=== PATIENT | male | born 1995 | race Caucasian/White ===

== ENCOUNTER 2021-11-14 13:27 | Emergency (ER) | payer MEDICAID ==
[~2021-11-14] VITALS: Ht 185.4 cm; Wt 79.5 kg
[2021-11-14 14:02] LABS: BASOPHILS # (AUTO) 0.1 X10'3 (0-0.2); BASOPHILS % (AUTO) 0.6 % (0-1); EOSINOPHILS # (AUTO) 0.2 X10'3 (0-0.9); EOSINOPHILS % (AUTO) 2.5 % (0-6); HEMATOCRIT 49.5 % (42.0-52.0); HEMOGLOBIN 16.6 g/dl (14.0-17.9); LYMPHOCYTES # (AUTO) 2.9 X10'3 (1.1-4.8); MEAN CORPUSCULAR HEMOGLOBIN 32.1 PG (27.0-31.0); MEAN CORPUSCULAR HGB CONC 33.6 g/dL (33.0-36.5); MEAN CORPUSCULAR VOLUME 95.7 FL (78-98); MEAN PLATELET VOLUME 8.5 FL (7.4-10.4); MONOCYTES # (AUTO) 1.1 X10'3 (0-0.9); MONOCYTES % (AUTO) 11.7 % (2-12); NEUTROPHILS # (AUTO) 5.3 X10'3 (1.8-7.7); NEUTROPHILS % (AUTO) 55.2 % (42-75); PLATELET COUNT 221 X10'3 (140-440); RED BLOOD COUNT 5.17 X10'6 (4.70-6.10); RED CELL DISTRIBUTION WIDTH 13.4 % (11.5-14.5); WHITE BLOOD COUNT 9.5 X10'3 (4.5-11.0)
[2021-11-14 14:41] LABS: ALANINE AMINOTRANSFERASE 64 U/L (12-78); ALBUMIN 4.2 G/DL (3.4-5.0); ALBUMIN/GLOBULIN RATIO 1.3 (1.1-1.5); ALKALINE PHOSPHATASE 58 IU/L (46-116); ANION GAP 12 (8-16); ASPARTATE AMINO TRANSFERASE 31 U/L (10-37); BILIRUBIN,TOTAL 0.6 MG/DL (0.1-1.0); BLOOD UREA NITROGEN 6 MG/DL (7-18); BUN/CREATININE RATIO 6.3 (5.4-32.0); CALCIUM 9.1 MG/DL (8.5-10.1); CHLORIDE 104 MMOL/L (99-107); CREATININE 0.95 MG/DL (0.60-1.10); GLUCOSE 94 MG/DL (70-104); POTASSIUM 3.8 MMOL/L (3.5-5.1); SODIUM 141 MMOL/L (135-145); TOTAL CARBON DIOXIDE 25.5 MMOL/L (24-32); TOTAL PROTEIN 7.5 G/DL (6.4-8.2); eGFR > 90 ML/MIN
[2021-11-14 15:22] LABS: CLARITY,URINE SLIGHTLY CLOUDY (Clear); COLOR,URINE YELLOW (Yellow); GLUCOSE, URINE NEGATIVE (Neg); KETONES,URINE NEGATIVE (Neg); LEUKOCYTE ESTERASE ,URINE NEGATIVE (Neg); NITRITES, URINE NEGATIVE (Neg); OCCULT BLOOD,URINE MODERATE (Neg); PH,URINE 6.5 (4.8-8.0); PROTEIN,URINE NEGATIVE (Neg); UA COLLECTION TYPE CLN CATCH MIDSTREAM; UROBILINOGEN,URINE 0.2 E.U/dL (0.2-1.0)
[2021-11-14 15:30] LABS: WBC,URINE NONE SEEN /HPF (0-4)
[2021-11-14 15:31] LABS: BACTERIA,URINE NONE SEEN /HPF (Neg); MUCUS STRANDS MODERATE /LPF (Neg); RBC,URINE 20-50 /HPF (0-2); SQUAMOUS EPITHELIAL CELL,UR FEW /LPF (FEW)
[2021-11-14 16:29] VITALS: BP 129/87
== END 2021-11-14 16:31 | disposition home or self-care (01) ==
LOC: ER 13:27
DX: R10.31 Right lower quadrant pain (principal)
CPT/HCPCS: 36415; 74176; 80053; 81001; 85025; 99284

== ENCOUNTER 2021-11-19 05:40 | Inpatient (IN) | payer MEDICAID ==
[~2021-11-19] VITALS: Ht 188 cm; Wt 79.5 kg
--- NOTE | 2021-11-19 08:00 | NUR ---
CALLED LAB TO SEE IF THEY HAVE RECIVED BLD SPECIMEN PER EMI IN LAB ,JANE MUSIC ORCHESTRATOR CAME TO ER TO DRAW BLD BUT PT REFUSED TO GET IT DRAWN UNTILL HE GETS THE BED IN ER.
[2021-11-19 08:34] LABS: BASOPHILS # (AUTO) 0.1 X10'3 (0-0.2); BASOPHILS % (AUTO) 0.3 % (0-1); EOSINOPHILS # (AUTO) 0.1 X10'3 (0-0.9); EOSINOPHILS % (AUTO) 0.7 % (0-6); HEMATOCRIT 45.7 % (42.0-52.0); HEMOGLOBIN 15.5 g/dl (14.0-17.9); LYMPHOCYTES # (AUTO) 1.1 X10'3 (1.1-4.8); LYMPHOCYTES % (AUTO) 6.9 % (21-51); MEAN CORPUSCULAR HEMOGLOBIN 31.4 PG (27.0-31.0); MEAN CORPUSCULAR HGB CONC 33.8 g/dL (33.0-36.5); MEAN CORPUSCULAR VOLUME 92.8 FL (78-98); MEAN PLATELET VOLUME 8.6 FL (7.4-10.4); MONOCYTES # (AUTO) 1.2 X10'3 (0-0.9); MONOCYTES % (AUTO) 7.8 % (2-12); NEUTROPHILS # (AUTO) 13.3 X10'3 (1.8-7.7); NEUTROPHILS % (AUTO) 84.3 % (42-75); PLATELET COUNT 197 X10'3 (140-440); RED BLOOD COUNT 4.93 X10'6 (4.70-6.10); WHITE BLOOD COUNT 15.7 X10'3 (4.5-11.0)
[2021-11-19 08:39] LABS: ALANINE AMINOTRANSFERASE 47 U/L (12-78); ALBUMIN 4.2 G/DL (3.4-5.0); ALBUMIN/GLOBULIN RATIO 1.4 (1.1-1.5); ALKALINE PHOSPHATASE 54 IU/L (46-116); ANION GAP 9 (8-16); ASPARTATE AMINO TRANSFERASE 34 U/L (10-37); BILIRUBIN,TOTAL 0.5 MG/DL (0.1-1.0); BLOOD UREA NITROGEN 6 MG/DL (7-18); BUN/CREATININE RATIO 4.4 (5.4-32.0); CHLORIDE 105 MMOL/L (99-107); CREATININE 1.36 MG/DL (0.60-1.10); GLUCOSE 92 MG/DL (70-104); LIPASE 85 U/L (73-393); POTASSIUM 3.9 MMOL/L (3.5-5.1); SODIUM 139 MMOL/L (135-145); TOTAL CARBON DIOXIDE 25.5 MMOL/L (24-32); TOTAL PROTEIN 7.2 G/DL (6.4-8.2); eGFR 62 ML/MIN
[2021-11-19] MEDS ORDERED: normal saline 1000ML IV soln IVB ONE ×3 (09:15→11:15)
[2021-11-19] MEDS ORDERED: ondansetron/PF 4mg/2ml inj IV ONE (09:15)
[2021-11-19] MEDS ORDERED: morphine 4 MG/ML inj SYRINge IV ONE ×2 (09:15→10:00)
[2021-11-19] MEDS: diatr meglu/diatrizoate 30ml oral sol.-(3 dose) bottle PO SCH ×2 (10:20→11:05)
[2021-11-19] MEDS ORDERED: iohexol 300mg/ml 100ml inj. ONE (10:29)
[2021-11-19] MEDS ORDERED: LORazepam 2 mg/ml vial IV ONE (11:00)
[2021-11-19] MEDS: pantoprazole 40MG/NS 100ML BAG 100 ML IV SCH ×3 (11:15→12:39)
[2021-11-19 11:23] LABS: CLARITY,URINE CLEAR (Clear); COLOR,URINE YELLOW (Yellow); GLUCOSE, URINE 100 mg/dl (Neg); KETONES,URINE 40 mg/dl (Neg); LEUKOCYTE ESTERASE ,URINE NEGATIVE (Neg); OCCULT BLOOD,URINE SMALL (Neg); PROTEIN,URINE 30 mg/dl (Neg)
[2021-11-19 11:27] LABS: UA COLLECTION TYPE FOLEY CATH
[2021-11-19 11:30] LABS: NITRITES, URINE NEGATIVE (Neg)
[2021-11-19 11:31] LABS: BACTERIA,URINE NONE SEEN /HPF (Neg); MUCUS STRANDS FEW /LPF (Neg); SQUAMOUS EPITHELIAL CELL,UR FEW /LPF (FEW)
[2021-11-19] MEDS ORDERED: ondansetron/PF 4mg/2ml inj IV PRN (14:20)
[2021-11-19] MEDS ORDERED: magnesium hydroxide 30ml (MOM) UD suspension PO PRN (14:20)
[2021-11-19] MEDS: normal saline 1000ml 1,000 ML IV SCH ×2 (14:20→22:30)
[2021-11-19] MEDS ORDERED: acetaminophen 325mg tablet PO PRN (14:20)
[2021-11-19] MEDS ORDERED: mag hydrox/Alum hydrox/simeth 30ml oral suspension PO PRN (14:20)
[2021-11-19] MEDS: HYDROcodone/acetaminophen 5mg/325mg tablet PO PRN ×2 (15:47→20:45)
--- NOTE | 2021-11-19 18:41 | NUR ---
Patient in room ED [id number]. I have received report from Yen MICHEL and had the opportunity to ask questions and assume patient care.
[2021-11-19 20:00] VITALS: BP 126/86
[2021-11-19] MEDS: docusate sod 100mg capsule PO SCH (20:43)
[2021-11-19] MEDS ORDERED: tamsulosin 0.4mg capsule PO SCH (21:00)
[2021-11-19 22:00] VITALS: BP 120/80
[2021-11-20] MEDS: HYDROcodone/acetaminophen 5mg/325mg tablet PO PRN ×3 (01:21→09:22)
[2021-11-20 05:39] LABS: BASOPHILS % (AUTO) 0.2 % (0-1); EOSINOPHILS # (AUTO) 0.2 X10'3 (0-0.9); HEMATOCRIT 41.7 % (42.0-52.0); HEMOGLOBIN 14.3 g/dl (14.0-17.9); LYMPHOCYTES # (AUTO) 1.7 X10'3 (1.1-4.8); LYMPHOCYTES % (AUTO) 16.2 % (21-51); MEAN CORPUSCULAR HEMOGLOBIN 32.3 PG (27.0-31.0); MEAN CORPUSCULAR HGB CONC 34.2 g/dL (33.0-36.5); MEAN CORPUSCULAR VOLUME 94.4 FL (78-98); MEAN PLATELET VOLUME 9.2 FL (7.4-10.4); MONOCYTES # (AUTO) 1.1 X10'3 (0-0.9); MONOCYTES % (AUTO) 10.7 % (2-12); NEUTROPHILS # (AUTO) 7.3 X10'3 (1.8-7.7); NEUTROPHILS % (AUTO) 70.9 % (42-75); PLATELET COUNT 148 X10'3 (140-440); RED BLOOD COUNT 4.42 X10'6 (4.70-6.10); RED CELL DISTRIBUTION WIDTH 12.8 % (11.5-14.5); WHITE BLOOD COUNT 10.3 X10'3 (4.5-11.0)
[2021-11-20 05:49] LABS: ALBUMIN 2.8 G/DL (3.4-5.0); ANION GAP 8 (8-16); BLOOD UREA NITROGEN 8 MG/DL (7-18); BUN/CREATININE RATIO 10.3 (5.4-32.0); CALCIUM 8.1 MG/DL (8.5-10.1); CHLORIDE 107 MMOL/L (99-107); CREATININE 0.78 MG/DL (0.60-1.10); GLUCOSE 96 MG/DL (70-104); POTASSIUM 3.5 MMOL/L (3.5-5.1); SODIUM 141 MMOL/L (135-145); TOTAL CARBON DIOXIDE 26.1 MMOL/L (24-32); eGFR > 90 ML/MIN
--- NOTE | 2021-11-20 06:21 | NUR ---
Problems reprioritized. Patient report given, questions answered & plan of care reviewed with Mague johnson.
[2021-11-20 07:00] VITALS: BP 93/62
[2021-11-20] MEDS: docusate sod 100mg capsule PO SCH (08:00)
--- NOTE | 2021-11-20 08:19 | NUR ---
Malnutrition consult: Pt admitted w/ ureter stones w/ hx of heavy EtOH use per EMR. Pt reports 2-13lb wt loss per MST. Pt states that his wt is fairly stable w/ no significant changes, no visible signs of muscle/fat wasting observed at bedside. No edema noted. Currently on Regular diet pending PO intake. At this time pt does not meet minimum criteria for malnutrition. Recommend routine thiamine, folic acid, MVI if MD agreeable given EtOH hx. Addendum: 11/20/21 at [address] Amended: Links added.
[2021-11-20] MEDS: normal saline 1000ml 1,000 ML IV SCH (09:23)
--- NOTE | 2021-11-20 09:56 | NUR ---
RECEIVED REPORT FROM ANAND BEAN
[2021-11-20 10:00] VITALS: BP 92/56
--- NOTE | 2021-11-20 11:45 | NUR ---
PT D/C WITH INSTRUCTIONS, UNDERSTANDING OF INSTRUCTIONS AND W/ALL BELONGINGS WALKING OUT TO PRIVATE VEHICLE TO GO HOME AND F/U W/PCP
== END 2021-11-20 11:45 | disposition home or self-care (01) | DRG 465 ==
LOC: ER 05:40 → ED HOLD 14:20 → UNDOADMOB 14:23 → ED HOLD 14:23 → OBSVTOIN 14:23 → INTOOBSV 14:23 → EDBEDREQ 18:15 → ED HOLD 20:00 → ORTHO 4S 20:00 → INTOOBSV 11-20 08:13 → OBSVTOIN 11-20 08:13 → UNDODISOB 11-20 11:45 → UNDOADMOB 11-20 14:20
PROVIDERS: ADMIT Family Medicine; ATTEND Family Medicine
PROC: BW211ZZ Computerized Tomography (CT Scan) of Abdomen and Pelvis using Low Osmolar Contrast (ICD-10-PCS; principal; 2021-11-19)
DX: N13.2 Hydronephrosis with renal and ureteral calculous obstruction (principal); N17.0 Acute kidney failure with tubular necrosis; Z20.822 Contact with and (suspected) exposure to COVID-19; E86.0 Dehydration; F10.20 Alcohol dependence, uncomplicated; Z88.2 Allergy status to sulfonamides
CPT/HCPCS: 36415; 74177; 76770; 80048; 80053; 81001; 83690; 85025; 87081; 87088; 87635; 96361; 96374; 99285; A4314; C9113; G0378; J3490; J7030; Q9967